=== PATIENT | female | born 1980 | race Caucasian/White ===

== ENCOUNTER 2016-08-10 20:57 | Outpatient (CLI) | payer OTHER ==
--- NOTE | 2016-08-11 09:40 | Ultrasound Report ---
COMPLETE ABDOMINAL ULTRASOUND: 08/10/2016 CLINICAL INDICATION: Abdominal pain. COMPARISON: 12/16/2011 TECHNIQUE: Real-time scanning was performed with claim service representative static images obtained. FINDINGS: The liver measures 13.2 cm. A hemangioma is again noted in the caudate lobe. No suspicio us hepatic lesion or intrahepatic biliary dilatation is present. The common bile duct measures 3 mm. The gallbladder again demonstrates a tiny nonshadowing echogenic focus, likely representing a 2-mm polyp. The pancreas is unremarkable. The kidneys are normal, with the right measuring 9.6 cm and th e left measuring 9.0 cm. The spleen measures 10.5 cm, and demonstrates normal echotexture. The abdo aguila aorta is normal in caliber. The inferior vena cava is unremarkable. No free fluid is present. IMPRESSION: STABLE HEPATIC HEMANGIOMA AND TINY POLYP IN THE GALLBLADDER. NO EVIDENT ETIOLOGY FOR PA TIENT'S ABDOMINAL PAIN. JOB #: [id number] EXT JOB #:[id number]
== END 2016-08-10 20:58 | disposition home or self-care (01) ==
LOC: DI 20:57
PROVIDERS: ATTEND Registered Nurse
DX: R10.84 Generalized abdominal pain (principal); D18.03 Hemangioma of intra-abdominal structures; K82.4 Cholesterolosis of gallbladder
CPT/HCPCS: 76700

== ENCOUNTER 2018-02-08 15:22 | Outpatient (CLI) | payer OTHER | END 2018-02-08 15:23 | disposition home or self-care (01) | LOC: EMS 15:22 | PROVIDERS: ATTEND Surgery | DX: Z04.1 Encounter for examination and observation following transport accident (principal) ==

== ENCOUNTER 2018-02-08 20:15 | Emergency (ER) | payer OTHER ==
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
[2018-02-08 21:03] LABS: BILIRUBIN,URINE NEGATIVE (NEGATIVE); GLUCOSE, URINE (UA) NEGATIVE (NEGATIVE); KETONES,URINE (UA) NEGATIVE (NEGATIVE); LEUKOCYTE ESTERASE, URINE NEGATIVE (NEGATIVE); NITRITE,URINE NEGATIVE (NEGATIVE); OCCULT BLOOD,URINE NEGATIVE (NEGATIVE); PH,URINE 5.5 PH (5.0-7.5); PROTEIN,URINE NEGATIVE (NEGATIVE); UROBILINOGEN,URINE 0.2 (NORMAL) E.U./dL (NORMAL)
[2018-02-08 21:04] LABS: CLARITY,URINE CLEAR (CLEAR)
[2018-02-08 21:05] LABS: HCG UR QUAL NEGATIVE
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
[2018-02-08 22:28] VITALS: BP 102/64
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
== END 2018-02-08 22:50 | disposition home or self-care (01) ==
LOC: ED 20:15
DX: S06.0X0A Concussion without loss of consciousness, initial encounter (principal); S16.1XXA Strain of muscle, fascia and tendon at neck level, initial encounter; V53.5XXA Driver of pick-up truck or van injured in collision with car, pick-up truck or van in traffic accident, initial encounter; Y92.411 Interstate highway as the place of occurrence of the external cause
CPT/HCPCS: 70450; 72125; 81001; 81003; 81025; 87086; 99283

== ENCOUNTER 2018-06-17 19:49 | Outpatient (CLI) | payer OTHER ==
--- NOTE | 2018-06-17 23:47 | XRAY Report ---
Reason: lumbar pain Chronic low back pain unspecified pain laterally Procedure Date: 06/17/2018 Accession Number: [id number] / [id number] Procedure: XR - Lumbar Spine 2 View CPT Code: FULL RESULT: EXAM: LUMBOSACRAL SPINE RADIOGRAPHY EXAM DATE: 06/17/2018 08:36 PM. CLINICAL HISTORY: Lumbar pain Chronic low back pain unspecified pain laterally. COMPARISONS: None. TECHNIQUE: 3 views. FINDINGS: Alignment: Normal. No spondylolisthesis or scoliosis. Bones: Five [id number] lumbar vertebral bodies are present. No fractures or bone lesions. Disks: Normal. Disk heights are maintained. Facets: No degenerative changes. Sacroiliac Joints: Unremarkable. Soft Tissues: Normal. The visualized bowel gas pattern is normal. IMPRESSION: Normal lumbar spine radiography. RADIA
== END 2018-06-17 19:50 | disposition home or self-care (01) ==
LOC: DI 19:49
PROVIDERS: ATTEND Registered Nurse
DX: M54.5 Low back pain (principal); G89.29 Other chronic pain
CPT/HCPCS: 72100

== ENCOUNTER 2018-06-17 19:50 | Outpatient (CLI) | payer OTHER ==
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
--- NOTE | 2018-06-24 09:05 | XRAY Report ---
Reason: M25.561 Procedure Date: 06/22/2018 Accession Number: [id number] / [id number] Procedure: XR - Knee 3 View LT CPT Code: FULL RESULT: EXAM: LEFT KNEE RADIOGRAPHY EXAM DATE: 06/17/2018 08:20 PM. CLINICAL HISTORY: M25. 561. COMPARISON: None. TECHNIQUE: 3 views. FINDINGS: Bones: Normal. No fractures or bone lesions. Joints: Normal. No effusion. No subluxations. Soft Tissues: Normal. No soft tissue swelling. IMPRESSION: No acute displaced fracture or malalignment. RADIA
== END 2018-06-17 19:51 | disposition home or self-care (01) ==
LOC: DI 19:50
PROVIDERS: ATTEND Nurse Practitioner Family
DX: M25.561 Pain in right knee (principal); M25.562 Pain in left knee

== ENCOUNTER 2018-09-28 19:54 | Emergency (ER) | payer OTHER ==
[2018-09-28] MEDS ORDERED: SODIUM CHLORIDE 0.9% 1,000 ML IV ONE (21:42)
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
[2018-09-28 22:00] LABS: BILIRUBIN,URINE NEGATIVE (NEGATIVE); GLUCOSE, URINE (UA) NEGATIVE (NEGATIVE); KETONES,URINE (UA) TRACE mg/dL (NEGATIVE); LEUKOCYTE ESTERASE, URINE NEGATIVE (NEGATIVE); NITRITE,URINE NEGATIVE (NEGATIVE); OCCULT BLOOD,URINE NEGATIVE (NEGATIVE); PROTEIN,URINE NEGATIVE (NEGATIVE); UROBILINOGEN,URINE 0.2 (NORMAL) E.U./dL (NORMAL)
[2018-09-28 22:02] LABS: CLARITY,URINE CLEAR (CLEAR); HCG UR QUAL NEGATIVE
[2018-09-28 22:18] LABS: BASOPHILS % (AUTO) 0.4 %; EOSINOPHILS % (AUTO) 0.3 %; HGB - HEMOGLOBIN 14.7 g/dL (12.0-16.0); LYMPHOCYTES # (AUTO) 1.3 10^3/uL (1.5-3.5); LYMPHOCYTES % (AUTO) 13.3 %; MEAN CORPUSCULAR HEMOGLOBIN 28.8 pg (27.0-31.0); MEAN CORPUSCULAR HGB CONC 32.7 g/dL (32.0-36.0); MEAN CORPUSCULAR VOLUME 88.1 fL (81.0-99.0); MEAN PLATELET VOLUME 9.6 fL (7.9-10.8); MONOCYTES # (AUTO) 0.4 10^3/uL (0.0-1.0); MONOCYTES % (AUTO) 4.4 %; NEUTROPHILS # (AUTO) 7.6 10^3/uL (1.5-6.6); PLT - PLATELET COUNT 308 10^3/uL (130-450); RED BLOOD COUNT 5.11 10^6/uL (4.20-5.40); RED CELL DISTRIBUTION WIDTH 13.5 % (12.0-15.0); WHITE BLOOD COUNT 9.4 x10^3/uL (4.8-10.8)
[2018-09-28 22:31] LABS: ALBUMIN 5.3 g/dL (3.2-5.5); ALBUMIN/GLOBULIN RATIO 1.7 (1.0-2.2); BILIRUBIN,TOTAL 0.7 mg/dL (0.2-1.0); CALCIUM 9.8 mg/dL (8.5-10.3); CREATININE 0.7 mg/dL (0.4-1.0); TOTAL PROTEIN 8.5 g/dL (6.7-8.2)
[2018-09-28 22:52] VITALS: BP 104/67
== END 2018-09-28 23:00 | disposition home or self-care (01) ==
LOC: ED 19:54
DX: R07.9 Chest pain, unspecified (principal); T39.8X5A Adverse effect of other nonopioid analgesics and antipyretics, not elsewhere classified, initial encounter
CPT/HCPCS: 36415; 80053; 81001; 81003; 81025; 83690; 85025; 87086; 93005; 96360; 99282

== ENCOUNTER 2020-05-25 19:14 | Emergency (ER) | payer OTHER ==
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
[2020-05-25] MEDS ORDERED: SODIUM CHLORIDE 0.9% 1,000 ML IV STA ×3 (19:47→20:50)
[2020-05-25] MEDS ORDERED: KETOROLAC 30 MG/ML VIAL IVP STA (19:47)
[2020-05-25] MEDS ORDERED: ONDANSETRON 4 MG/2 ML VIAL IVP STA (19:47)
[2020-05-25 19:58] LABS: BASOPHILS % (AUTO) 0.3 %; EOSINOPHILS # (AUTO) 0.1 10^3/uL (0.0-0.7); EOSINOPHILS % (AUTO) 0.7 %; HCT - HEMATOCRIT 41.2 % (37.0-47.0); HGB - HEMOGLOBIN 13.2 g/dL (12.0-16.0); LYMPHOCYTES # (AUTO) 1.5 10^3/uL (1.5-3.5); LYMPHOCYTES % (AUTO) 13.6 %; MEAN CORPUSCULAR HEMOGLOBIN 27.4 pg (27.0-31.0); MEAN CORPUSCULAR VOLUME 85.7 fL (81.0-99.0); MEAN PLATELET VOLUME 9.6 fL (7.9-10.8); MONOCYTES # (AUTO) 0.4 10^3/uL (0.0-1.0); MONOCYTES % (AUTO) 3.9 %; NEUTROPHILS # (AUTO) 8.9 10^3/uL (1.5-6.6); PLT - PLATELET COUNT 264 10^3/uL (130-450); RED BLOOD COUNT 4.81 10^6/uL (4.20-5.40); RED CELL DISTRIBUTION WIDTH 15.5 % (12.0-15.0)
[2020-05-25 20:17] LABS: ALBUMIN 4.8 g/dL (3.2-5.5); ALBUMIN/GLOBULIN RATIO 1.6 (1.0-2.2); BILIRUBIN,TOTAL 0.5 mg/dL (0.2-1.0); CALCIUM 9.3 mg/dL (8.5-10.3); CREATININE 0.7 mg/dL (0.4-1.0); POTASSIUM 4.1 mmol/L (3.5-5.0); TOTAL PROTEIN 7.8 g/dL (6.7-8.2)
[2020-05-25 21:26] LABS: BILIRUBIN,URINE NEGATIVE (NEGATIVE); GLUCOSE, URINE (UA) NEGATIVE (NEGATIVE); KETONES,URINE (UA) 15 mg/dL (NEGATIVE); LEUKOCYTE ESTERASE, URINE NEGATIVE (NEGATIVE); NITRITE,URINE NEGATIVE (NEGATIVE); OCCULT BLOOD,URINE NEGATIVE (NEGATIVE); PROTEIN,URINE NEGATIVE (NEGATIVE); UROBILINOGEN,URINE 0.2 (NORMAL) E.U./dL (NORMAL)
[2020-05-25 21:29] LABS: CLARITY,URINE CLEAR (CLEAR)
[2020-05-25 21:30] LABS: HCG UR QUAL NEGATIVE
--- NOTE | 2020-05-25 21:39 | ED Physician Documentation ---
PD HPI HEADACHE - Stated complaint Stated Complaint: BLACKWOOD,VOMITING - Chief complaint Chief Complaint: Neuro - History obtained from History obtained from: Patient - History of Present Illness Timing - onset: Today Timing - onset during: Rest Timing - duration: Days (1) Timing - details: Gradual onset Pain level max: 7 Pain level now: 7 Location: Global Quality: Throbbing, Aching Associated symptoms: Nausea. No: Fever, Stiff neck, Vomiting, Weakness, Numbness, Syncope, Seizure Improved by: Rest, Dark room Worsened by: Light, Noise - Additional information Additional information: 39 year old female with headache today. States on amoxicillin for an infected wisdom tooth. States increased nausea today. Review of Systems Ten Systems: 10 systems reviewed and negative Constitutional: denies: Fever, Chills Ears: denies: Ear pain Nose: denies: Rhinorrhea / runny nose, Congestion Throat: denies: Sore throat Respiratory: denies: Cough GI: reports: Nausea : denies: Dysuria, Frequency, Hesitancy, Now EGA Skin: denies: Rash Musculoskeletal: denies: Neck pain, Back pain Neurologic: denies: Headache PD PAST MEDICAL HISTORY - Past Medical History Past Medical History: Yes Neuro: Migraines : Other - Past Surgical History Past Surgical History: Yes - Present Medications Home Medications: Ambulatory Orders Medication Instructions Recorded Confirmed Fluconazole 02/08/18 Methimazole [Tapazole] 10 mg PO DAILY 05/25/20 05/25/20 Metoprolol Succinate [Toprol Xl] 25 mg PO BID 05/25/20 05/25/20 Ondansetron Odt [Zofran] 4 mg TL Q6H PRN #10 tablet 05/25/20 Sertraline [Zoloft] 25 mg PO DAILY 05/25/20 05/25/20 clindamycin HCL [Cleocin HCl] 300 mg PO Q6H #40 cap 05/25/20 - Allergies Allergies/Adverse Reactions: Allergies Allergy/AdvReac Type Severity Reaction Status Date / Time promethazine [From Phenergan] Allergy Hallucinati Verified 05/25/20 19:23 ons Sulfa (Sulfonamide Allergy Hallucinati Verified 05/25/20 19:23 Antibiotics) ons codeine AdvReac Emesis Verified 05/25/20 19:23 - Social History Does the pt smoke?: No Smoking Status: Never smoker Does the pt drink ETOH?: No Does the pt have substance abuse?: No - Immunizations Immunizations are current?: No Immunizations: TDAP current <10years - POLST Patient has POLST: No PD ED PE NORMAL - Vitals Vital signs reviewed: Yes - General General: Alert and oriented X 3, No acute distress, Well developed/nourished - HEENT HEENT: PERRL, Moist mucous membranes - Neck Neck: Supple, no meningeal sign - Cardiac Cardiac: RRR, Strong equal pulses - Respiratory Respiratory: No respiratory distress, Clear bilaterally - Abdomen Abdomen: Soft, Non tender, Non distended - Back Back: No spinal TTP - Derm Derm: Warm and dry - Extremities Extremities: No edema, No calf tenderness / cord - Neuro Neuro: Alert and oriented X 3, e commerce director 2-12 intact, No motor deficit, No sensory deficit, Normal speech - Psych Psych: Normal mood, Normal affect Results - Vitals Vitals: Oxygen O2 Source Room air - Labs Labs: Laboratory Tests 05/25/20 05/25/20 05/25/20 19:19 19:48 19:48 WBC 11.0 H RBC 4.81 Hgb 13.2 Hct 41.2 MCV 85.7 MCH 27.4 MCHC 32.0 RDW 15.5 H Plt Count 264 MPV 9.6 Neut # (Auto) 8.9 H Lymph # (Auto) 1.5 [place] # (Auto) 0.4 Eos # (Auto) 0.1 Baso # (Auto) 0.0 Absolute Nucleated RBC 0.00 Nucleated RBC % 0.0 Sodium 140 Potassium 4.1 Chloride 104 Carbon Dioxide 28 Anion Gap 8.0 BUN 24 H Creatinine 0.7 Estimated GFR (MDRD) 93 Glucose 133 H Calcium 9.3 Total Bilirubin 0.5 AST 15 ALT 21 Alkaline Phosphatase 84 Total Protein 7.8 Albumin 4.8 Globulin 3.0 Albumin/Globulin Ratio 1.6 Urine Color YELLOW Urine Clarity CLEAR Urine pH 6.0 Ur Specific [place] >=1.030 H Urine Protein NEGATIVE Urine Glucose (UA) NEGATIVE Urine Ketones 15 H Urine Occult Blood NEGATIVE Urine Nitrite NEGATIVE Urine Bilirubin NEGATIVE Urine Urobilinogen 0.2 (NORMAL) Ur Leukocyte Esterase NEGATIVE Ur Microscopic Review NOT INDICATED Urine Culture Comments NOT INDICATED Urine HCG, Qual NEGATIVE PD MEDICAL DECISION MAKING - ED course Complexity details: reviewed results, re-evaluated patient, considered differential, d/w patient ED course: Patient given IV fluids and Zofran. Feels much better. Headache resolved. Nausea resolved. Tolerating p.o. without difficulty. We will change her antibiotic from amoxicillin to clindamycin. We will see if she tolerates this better. Patient is well-appearing, nontoxic. Afebrile. Patient counseled regarding signs and symptoms for which I believe and urgent re-evaluation would be necessary. Patient with good understanding of and agreement to plan and is comfortable going home at this time This document was made in part using voice recognition software. While efforts are made to proofread this document, sound alike and grammatical errors may occur. Departure - Departure Disposition: Home, Self Care Clinical Impression: Medication side effect Headache Qualifiers: Headache type: unspecified Headache chronicity pattern: acute headache Intractability: not intractable Qualified Code(s): R51.9 - Headache, unspecified Condition: Good Instructions: ED Cephalgia Unspecified Follow-Up: Chris Cerda ARNP [Primary Care Provider] - Within 1 week Prescriptions: clindamycin HCL [Cleocin HCl] 300 mg PO Q6H #40 cap Ondansetron Odt [Zofran] 4 mg TL Q6H PRN #10 tablet PRN Reason: Nausea / Vomiting Comments: We will try changing you to clindamycin instead of the amoxicillin. We will also place you on Zofran for any nausea and vomiting. Make sure you are drinking plenty of water. Return if you worsen. Discharge Date/Time: 05/25/20 21:58
[2020-05-25 21:41] VITALS: BP 111/70
== END 2020-05-25 21:58 | disposition home or self-care (01) ==
LOC: ED 19:14
DX: G44.40 Drug-induced headache, not elsewhere classified, not intractable (principal); R11.0 Nausea; T36.0X5A Adverse effect of penicillins, initial encounter; K04.7 Periapical abscess without sinus
CPT/HCPCS: 36415; 80053; 81001; 81003; 81025; 85025; 87086; 96374; 99284

== ENCOUNTER 2020-11-13 15:02 | Emergency (ER) | payer OTHER ==
[2020-11-13] MEDS ORDERED: SODIUM CHLORIDE 0.9% 1,000 ML IV STA (15:27)
[2020-11-13] MEDS ORDERED: PROCHLORPERAZINE 10 MG/2 ML VIAL IVP STA (15:27)
[2020-11-13] MEDS ORDERED: diphenhydrAMINE INJ 50 MG/ML VIAL IVP STA (15:28)
[2020-11-13] MEDS ORDERED: DEXAMETHASONE 10 MG/ML VIAL IVP STA (15:28)
[2020-11-13] MEDS ORDERED: KETOROLAC 30 MG/ML VIAL IVP STA (15:28)
--- NOTE | 2020-11-13 15:55 | ED Physician Documentation ---
PD HPI HEADACHE - Stated complaint Stated Complaint: RX TO MEDICATIONS - Chief complaint Chief Complaint: Abd Pain - History obtained from History obtained from: Patient - History of Present Illness Timing - onset: Today Timing - onset during: Rest Timing - duration: Hours Timing - details: Abrupt onset, Still present Location: Global Quality: Throbbing Associated symptoms: Nausea, Vomiting, Weakness, Vision changes. No: Fever, Stiff neck, Numbness, Syncope, Seizure, Eye pain Improved by: Rest, Dark room, Quiet Worsened by: Light, Noise, Moving Contributing factors: No: Anticoagulated Similar symptoms before: Diagnosis (migraine) Recently seen: Not recently seen - Additional information Additional information: 48-year-old female with a history of migraine has developed a headache this morning some nausea vomiting sensitivity to light abdominal pain and feeling generalized weakness. She has had similar symptoms previously thought to be related to dehydration. 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 Review of Systems Constitutional: denies: Fever Ears: denies: Ear pain Nose: denies: Congestion Throat: denies: Sore throat Cardiac: denies: Chest pain / pressure Respiratory: denies: Dyspnea, Cough GI: reports: Abdominal Pain, Nausea, Vomiting : denies: Dysuria, Frequency Skin: denies: Rash Musculoskeletal: denies: Neck pain, Back pain, Extremity pain PD PAST MEDICAL HISTORY - Past Medical History Neuro: Migraines : Other - Past Surgical History Past Surgical History: Yes - Present Medications Home Medications: Ambulatory Orders Medication Instructions Recorded Confirmed Fluconazole 02/08/18 Methimazole [Tapazole] 10 mg PO DAILY 05/25/20 05/25/20 Metoprolol Succinate [Toprol Xl] 25 mg PO BID 05/25/20 05/25/20 Ondansetron Odt [Zofran] 4 mg TL Q6H PRN #10 tablet 05/25/20 Sertraline [Zoloft] 25 mg PO DAILY 05/25/20 05/25/20 clindamycin HCL [Cleocin HCl] 300 mg PO Q6H #40 cap 05/25/20 - Allergies Allergies/Adverse Reactions: Allergies Allergy/AdvReac Type Severity Reaction Status Date / Time promethazine [From Phenergan] Allergy Hallucinati Verified 11/13/20 15:08 ons Sulfa (Sulfonamide Allergy Hallucinati Verified 11/13/20 15:08 Antibiotics) ons codeine AdvReac Emesis Verified 11/13/20 15:08 - Social History Does the pt smoke?: No Smoking Status: Never smoker Does the pt drink ETOH?: No Does the pt have substance abuse?: No - Immunizations Immunizations are current?: No Immunizations: TDAP current <10years - POLST Patient has POLST: No PD ED PE NORMAL - Vitals Vital signs reviewed: Yes (normal ) - General General: Alert and oriented X 3, Well developed/nourished, Other (40-year-old female appears withdrawn and is actively vomiting.) - HEENT HEENT: Atraumatic, PERRL, EOMI - Neck Neck: Supple, no meningeal sign, No bony TTP - Cardiac Cardiac: RRR, No murmur - Respiratory Respiratory: No respiratory distress, Clear bilaterally - Abdomen Abdomen: Normal bowel sounds, Soft, Non tender, Non distended, No organomegaly - Back Back: No CVA TTP, No spinal TTP - Derm Derm: Normal color, Warm and dry, No rash - Extremities Extremities: No deformity, No edema - Neuro Neuro: Alert and oriented X 3, travel insurance agent 2-12 intact, No motor deficit, No sensory deficit, Normal speech Eye Opening: Spontaneous Motor: Obeys Commands Verbal: Oriented GCS Score: 15 - Psych Psych: Other (Mood is withdrawn the affect is flat. Following treatment the flat affect is more apparent.) Results - Vitals Vitals: Vital Signs - 24 hr 11/13/20 11/13/20 11/13/20 15:08 15:44 16:58 Temperature 37.0 C Heart Rate 93 71 76 Respiratory 16 19 16 Rate Blood Pressure 114/72 112/78 111/58 L O2 Saturation 100 100 100 Oxygen O2 Source Room air PD MEDICAL DECISION MAKING - ED course Complexity details: considered differential, d/w patient ED course: 40-year-old female with a migraine headache is treated with migraine cocktail consisting of a liter of saline 10 mg of Compazine 25 mg of Benadryl 30 mg of Toradol and 10 mg of dexamethasone. She has resolution of her symptoms. On returning to the room the patient's affect appears flattened. In fact she has a dramatically flattened affect. I checked her IVC at discharge and it was 1.51 consistent with euvolemia. The patient's affect improved at discharge. Departure - Departure Disposition: 01 Home, Self Care Clinical Impression: Migraine Qualifiers: Migraine type: without aura Status migrainosus presence: without status migrainosus Intractability: not intractable Qualified Code(s): G43.009 - Migraine without aura, not intractable, without status migrainosus Condition: Stable Instructions: ED Headache Migraine Follow-Up: [facility] [Provider Group] Discharge Date/Time: 11/13/20 17:04
[2020-11-13 16:59] VITALS: BP 111/58
== END 2020-11-13 17:04 | disposition home or self-care (01) ==
LOC: ED 15:02
DX: G43.009 Migraine without aura, not intractable, without status migrainosus (principal)
CPT/HCPCS: 36415; 96374; 96375; 99284; 99285; J1200

== ENCOUNTER 2022-12-22 13:43 | Outpatient (CLI) | payer OTHER ==
--- NOTE | 2022-12-22 16:50 | Ultrasound Report ---
PROCEDURE: Pelvic w/Transvaginal INDICATIONS: PELVIC PAIN TECHNIQUE: Real-time scanning was performed of the pelvic organs, with image documentation. Additional endovagi nal scanning was necessary due to incomplete visualization of the adnexal and endometrial structures by transabdominal scanning. COMPARISON: Pelvic ultrasound 07/04/2012. FINDINGS: Uterus: Uterus is anteverted and normal in size at 9.7 x 5.9 x 4.3 cm with a calculated volume of 12 7 cc. The myometrium is homogeneous. The endometrium measures 13.9 mm in combined thickness. Posterior intramural fibroid measuring 2.1 x 1.7 x 2.0 cm Ovaries: The right ovary measures 2.8 x 2.2 x 1.7 cm, with a calculated ovarian volume of 5.6 cc. T he left ovary measures 3.8 x 3.1 x 2.9 cm, with a calculated ovarian volume of 18.4 cc. The ovaries have a normal sonographic appearance. Less than 12 follicles can be seen in each ovary. No adnexal masses are seen. No cystic lesions measuring greater than 3 cm. Other: No pathologic free abdominal or pelvic fluid. IMPRESSION: Intramural uterine fibroid measuring up to 2.1 cm. Reviewed by: Nicol Hamm MD on 12/22/2022 4:49 PM PST Approved by: Nicol Hamm MD on 12/22/2022 4:49 PM PST Station ID: [id number]
== END 2022-12-22 13:44 | disposition home or self-care (01) ==
LOC: DI 13:43
PROVIDERS: ATTEND Nurse Practitioner
DX: D25.1 Intramural leiomyoma of uterus (principal); R10.2 Pelvic and perineal pain